=== PATIENT | male | born 1955 | race Caucasian/White ===

== ENCOUNTER 2016-10-22 09:55 | Day surgery (SDC) | payer OTHER ==
[~2016-10-22] VITALS: Ht 172.7 cm; Wt 82.6 kg
[~2016-10-22 09:55] MED LIST: AMLO2.5T PO; CARVEDILOL 1212.5 MG PO; DULOXETINE20 MG PO; HYDROCODONE BIT1 T39 PO; LIDODERM1 EACH TP; LOSARTAN POTAS100 MG PO
[2016-10-22 10:30] VITALS: BP 145/89
[2016-10-22 10:46] VITALS: BP 145/89
[2016-10-22 10:48] VITALS: BP 157/100
--- NOTE | 2016-10-22 10:53 | Procedure Note ---
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 Cervical facet arthropathy. Post-procedure diagnosis: Same. Indications for procedure: Patient's pleasant 6-year-old white male that we've been treating her pain clinic for chronic cervical neck pain secondary to degenerative disc disease cervical spine multiple levels as well as cervical spondylosis. He has had 1 round of cervical medial branch blocks C5-6, C6-7, C7-T1. He reports ports 100 percent improvement terms for cervical neck pain in flexion, extension, RIGHT and LEFT rotation lasting 5-7 days. At which time his pain began return slowly. However, not in its entirety. Patient presents today for a second round of medial branch block. Procedure detail: Informed consent was obtained and the risk and benefits of the procedure was explained to the patient. Patient was taken to the procedure room where noninvasive monitors were placed, including noninvasive blood pressure cuff as well as pulse oximeter. The area over the lumbar spine was cleansed using chlorhexidine as a cleansing solution. I anesthetized the skin and subcutaneous tissues with 1% Lidocaine. I placed 22-gauge spinal needles into the facet joint / medial branches of 56, C6-7, C7-T1 bilaterally. Needle placement was confirmed with fluoroscopy. After confirmation of needle placement, each site was injected with 1 mL of 1% lidocaine and 0.25 % Marcaine and 10 mg of Depo-Medrol. A total of 80 mg of depo medrol was used for bilateral medial branch blocks of 6, C6-7, C7-T1 bilaterally. Patient tolerated the procedure without difficulty. There were no complications. Plan and disposition: Patient was reevaluated 10 minutes post procedure. Patient reports 100 percent improvement terms her cervical neck pain as flexion, extension, LEFT and RIGHT rotation. We discussed cervical rhizotomy in the near future. He wishes to proceed. He'll follow up with us in the pain clinic for further evaluation within the next few weeks. at [id number]
[2016-10-22 10:58] VITALS: BP 148/90
== END 2016-10-22 10:58 | disposition home or self-care (01) ==
LOC: PM 09:55
PROC: 3E0T33Z Introduction of Anti-inflammatory into Peripheral Nerves and Plexi, Percutaneous Approach (ICD-10-PCS; principal; 2016-10-22)
PROC: 3E0T3BZ Introduction of Anesthetic Agent into Peripheral Nerves and Plexi, Percutaneous Approach (ICD-10-PCS; 2016-10-22)
DX: M50.10 Cervical disc disorder with radiculopathy, unspecified cervical region (principal); M46.92 Unspecified inflammatory spondylopathy, cervical region
CPT/HCPCS: J1040

== ENCOUNTER 2017-01-14 15:11 | Day surgery (SDC) | payer OTHER ==
[~2017-01-14] VITALS: Ht 172.7 cm; Wt 83.9 kg
[2017-01-14 15:29] VITALS: BP 141/81
[2017-01-14 15:50] VITALS: BP 141/81; BP 160/98
--- NOTE | 2017-01-14 16:06 | Procedure Note ---
Procedure detail Date of procedure: 01/14/17 Anesthesiologist: Demetrio Diego Complications: None Pre-procedure diagnosis: Degenerative disc disease cervical spine. Cervical facet arthropathy. Spondylosis. Post-procedure diagnosis: Same Indications for procedure: This patient is a pleasant 61-year-old white male who we're treating for neck pain with degenerative disease of cervical spine with cervical facet arthropathy. He has had 2 successful rounds of medial branch blocks at C5-C6, C6 -C7 and C7-T1. Patient presents today for LEFT side radial frequency ablation C5 -6, C6-7, C7-T1. Procedure detail: The procedure was explained to the patient in detail. Consent form was signed. Patient was taken back to the procedure room, where noninvasive monitors were placed. This included noninvasive blood pressure cuff and pulse oximeter. The patient was placed prone on the C-arm table. The area over the lumbar spine was cleansed using chlorhexidine as cleansing solution. Using fluoroscopy guidance, markers were placed over the pedicle at the LEFT C5-6, C6-7, C7-T1. 1% Lidocaine was used to anesthetize the skin with a 25-gauge needle at these markers. Using fluoroscopy guidance the radiofrequency probe was used to access the superior margin of the pedicle at C5-6, C6-7, C7-T1. After negative motor stimulation, 2 mls of 0.25% Marcaine and 10 mg of Depo-Medrol were injected into each needle. We then proceeded with radial frequency ablation at all 3 levels at 80 degrees Celsius 60 seconds. After the lesion was formed the needles were withdrawn. Band-Aids were applied. The patient tolerated the procedure without difficulty. There were no complications Plan and disposition: Patient was reevaluated 10 minutes post procedure. He is doing very well. He reports 50 percent reduction in pain. He'll return to see us in the pain clinic for further evaluation. at [id number]
[2017-01-14 16:16] VITALS: BP 150/94
== END 2017-01-14 16:17 ==
LOC: PM 15:11
PROC: 3E0T3TZ Introduction of Destructive Agent into Peripheral Nerves and Plexi, Percutaneous Approach (ICD-10-PCS; principal; 2017-01-14)
PROC: BR141ZZ Fluoroscopy of Cervical Facet Joint(s) using Low Osmolar Contrast (ICD-10-PCS; 2017-01-14)
DX: M50.30 Other cervical disc degeneration, unspecified cervical region (principal); M54.02 Panniculitis affecting regions of neck and back, cervical region; M47.892 Other spondylosis, cervical region
CPT/HCPCS: J1030